=== PATIENT | female | born 1950 | race Caucasian/White ===

== ENCOUNTER 2025-08-21 12:42 | Emergency (ER) | payer MEDICARE, BC ==
[~2025-08-21] VITALS: Ht 167.6 cm; Wt 56.0 kg
[2025-08-21 12:46] VITALS: TEMP 98
--- NOTE | 2025-08-21 15:27 | Physician Documentation ---
Addendum CHIEF COMPLAINT/HPI: The patient is a 69-year-old female who was found wandering the streets and u nable to tell police where she lived or even her name. They brought her here. REVIEW OF SYSTEMS: Unable to obtain due to patient's language deficit PHYSICAL EXAMINATION: Vitals and nursing note reviewed. Constitutional: General: Patient is awake, alert, oriented x 4 in no acute distress and well appearing. Speech is clear and lucid. Appearance: Normal appearance. Patient is not ill-appearing, toxic-appearing or diaphoretic. HENT: Head: Normocephalic and atraumatic. Mouth: Mucous membranes are moist. Pharynx: Oropharynx is clear. Eyes: General: No scleral icterus. Extraocular Movements: Extraocular movements intact. Pupils: Pupils are equal, round, and reactive to light. Neck: Supple, no Kernig or Brudzinski sign. Cardiovascular: Rate and Rhythm: Normal rate and regular rhythm. Heart sounds: No murmur heard. Pulmonary: Effort: No respiratory distress. Breath sounds: No wheezing, rhonchi or rales. Abdominal: General: There is no distension. Palpations: There is no fluid wave, hepatomegaly or mass. Tenderness: There is no abdominal tenderness. There is no guarding. Musculoskeletal: General: No swelling or deformity. Skin: Coloration: Skin is not jaundiced. Findings: No erythema or rash. Neurological: Mental Status: Patient is alert. MEDICAL DECISION MAKING: The patient is arrived. He has already arranged a bed for this patient at [facility]. Our tele-stroke neurologist recommended no further workup. Departure Disposition: [facility] Impression: Primary Impression: Dementia Condition: Stable Additional Instructions: Please take Jose directly to [facility]. CYRUS GARBER MD Aug 21, 2025 15:27
[2025-08-21 15:32] LABS: MEAN PLATELET VOLUME 7.3 FL (7.4-10.4); RED CELL DISTRIBUTION WIDTH 13.6 % (11.5-14.5)
--- NOTE | 2025-08-21 15:35 | RADIOLOGY REPORT ---
CT CT STROKE ALERT, CT CTA NECK/HEAD INDICATION: CVA COMPARISON: None TECHNIQUE: CT of the head without intravenous contrast. CT angiogram of the head and neck was performed with IV contrast. 3D MIP images were created and reviewed. Coronal and sagittal reformatted images were obtained. RADIATION DOSE: CTDIvol: 88.74 mGy, DLP: 1469.49 mGy*cm FINDINGS: CT HEAD: There is no evidence of acute intracranial hemorrhage, extra-axial collection, mass effect, midline shift, herniation or hydrocephalus. The ventricles, sulci and cisterns are age appropriate. The coyle-white differentiation is intact. Generalized brain atrophy. Periventricular white matter hypoattenuation, nonspecific, likely related to chronic small-vessel ischemic disease. The visualized paranasal sinuses and mastoid air cells are clear. The surrounding soft tissues and osseous structures are unremarkable. CTA HEAD: The anterior and posterior circulations are patent without evidence of large vessel occlusion, high-grade stenosis, aneurysm, or vascular malformation. The major dural venous sinuses are patent. CTA NECK: Mild scattered plaque in the aortic arch. Conventional 3-vessel branching pattern of the aortic arch. Bilateral common carotid arteries, carotid bulbs, and cervical internal carotid arteries are patent without evidence of significant stenoses by NASCET criteria. Bilateral external carotid arteries are patent Bilateral extradural vertebral arteries are patent with note of a slightly more dominant right vertebral artery. There is no dissection or other acute vascular abnormality in the neck IMPRESSION: No acute intracranial abnormality Atrophy and chronic small-vessel ischemic changes No large vessel occlusion, dissection, high-grade stenosis, or other acute vascular abnormality in the head or neck Findings communicated to Dr. Potter at 3:30 PM on 08/21/2025
[2025-08-21 15:37] VITALS: BP 144/84; PULSE 73; RESP 16; O2SAT 94
[2025-08-21 15:43] LABS: CREATININE 0.60 MG/DL (0.40-0.90); TOTAL CARBON DIOXIDE 25.1 MMOL/L (24-32); eCRCL 77 ML/MIN; eGFR > 90 ML/MIN
[2025-08-21 15:49] LABS: APTT 26 SECONDS (22-32); INR 1.2 INR
--- NOTE | 2025-08-21 15:49 | [facility] CONSULT REPORT ---
[facility] Procedure Note [facility] Procedure Note Consult [facility] Note # Demographics Consult Type: Acute Stroke Level 2 (4.5-24 hrs) Patient Location: Emergency Room First Name: Claire Last Name: Sandee Date of : 1950 Age: 75 Gender: Female Facility: [facility] Time of Initial Page (): 08/21/2025 15:17 First Contact with Site (): 08/21/2025 15:17 # HPI Chief Complaint: - confusion History: 75-year-old female with a history of dementia diagnosed 4 years ago who was brought to the emergency department by police after being found unable to provide her name or address when questioned about her whereabouts. The patient has experienced progressive worsening of her dementia over the past 2-4 years since diagnosis. She stopped driving approximately 2 years ago due to her condition. She has developed increasing difficulty forming words, which has progressively worsened over the years. states that the patient is currently at her baseline compared to how she's been the past month or so. He states that he cannot care of her anymore at this point. Last Known Normal: - 10 AM # Scores Time of exam and NIHSS (): 08/21/2025 15:42 Level of Consciousness 1a: [0] = Alert; keenly responsive LOC Questions 1b: [2] = Answers neither correctly LOC Commands 1c: [2] = Performs neither correctly Best Gaze 2: [0] = Normal Visual 3: [0] = No visual loss Facial Palsy 4: [0] = Normal symmetrical movements Motor Arm Left 5a: [0] = No drift Motor Arm Right 5b: [0] = No drift Motor Leg Left 6a: [0] = No drift Motor Leg Right 6b: [0] = No drift Limb Ataxia 7: [0] = Absent Sensory 8: [0] = Normal Best Language 9: [2] = Severe aphasia Dysarthria 10: [0] = Normal Extinction and Inattention 11: [0] = No abnormality NIHSS Total: 6 # Data Time Head CT personally read by me ([place] ): 08/21/2025 15:[address]: - no bleed - per radiologist read Time CTA personally reviewed by me (): 08/21/2025 15:42 CTA Head: - no large vessel occlusion - per radiologist read # Assessment Impression: - Other - Progressive dementia; is hoping to have patient be placed in a facility as he cannot take care of her at this point. # Plan Thrombolytic/Intervention: NOT IV Thrombolysis or IA Intervention candidate Intraarterial Exclusion: - no large vessel occlusion (LVO) Thrombolytic/Intraarterial Exclusion: - IV thrombolytic and IA intervention considered but not recommended as this patient's symptoms are not clinically consistent with an assumed diagnosis of stroke Labs: - ua - CBC - comprehensive metabolic panel Therapy/Evaluation: - PT/OT evaluation Other: - If patient has any neurological deterioration please call me back immediately - I have discussed my recommendations with the referring provider Disposition: observation # Logistics Attestation of consult completion: The patient is located at: [facility]. Facility staff participated in the visit. I performed this telemedicine visit from my offsite office utilizing interactive 2 way audio and visual telecommunication technology at the request of the onsite emergency room provider. Total time spent in telemedicine encounter: I spent 15 minutes reviewing cli nical data and/or imaging, obtaining history, examining the patient, communicating with the onsite care team, and in preparation of this report. # Demographics First Name: Claire Last Name: Sandee Facility: [facility] Neuro Consult Order placed for: Yes TYRELL PICKARD MD Aug 21, 2025 15:49
--- NOTE | 2025-08-21 15:53 | RADIOLOGY REPORT ---
EXAM: DI CHEST,SINGLE VIEW HISTORY: Stroke Alert COMPARISON: None TECHNIQUE: Portable upright AP view of the chest was performed. FINDINGS: No pneumothorax, consolidative infiltrates, or pulmonary edema. There is mild relative elevation of the right hemidiaphragm. The heart is not enlarged. IMPRESSION: No acute intrathoracic process.
[2025-08-21 16:12] LABS: LEUKOCYTE ESTERASE ,URINE NEGATIVE (Neg); NITRITES, URINE NEGATIVE (Neg); OCCULT BLOOD,URINE NEGATIVE (Neg)
[2025-08-21 16:15] LABS: UA COLLECTION TYPE VOIDED
--- NOTE | 2025-08-21 16:19 | ELECTROCARDIOGRAPH REPORT ---
[facility] Test Date: 2025-08-21 Test Time: 16:01:10 Pat Name: HERNAN KATZ Department: [facility]- Patient ID: [facility]-[id number] Room: Gender: F Circuit Manager: : 1950 Requested By: CYRUS GARBER Order Number: [id number] Reading MD: Measurements Intervals Ong Rate: 84 P: 45 IL: 164 QRS: -62 QRSD: 86 T: 87 QT: 420 QTc: 497 Interpretive Statements Atrial-paced complexes Ventricular premature complex Inferior infarct, old Lateral leads are also involved Please click the below link to view image of tracing.
[2025-08-21 16:27] LABS: URINE AMPHETAMINE SCREEN NEGATIVE (Neg); URINE BARBITUATE SCREEN NEGATIVE (Neg); URINE BENZODIAZEPINES SCREEN NEGATIVE (Neg); URINE CANNABINOID SCREEN NEGATIVE (Neg); URINE COCAINE SCREEN NEGATIVE (Neg); URINE METHADONE SCREEN NEGATIVE (Neg); URINE OPIATE SCREEN NEGATIVE (Neg); URINE PHENCYCLIDINE SCREEN NEGATIVE (Neg)
[2025-08-21] MEDS: haloperidol lactate 5mg/ml inj IM ONE (16:34)
== END 2025-08-21 16:45 ==
LOC: ER 12:43 → EDBD 12:43 → ER 16:45
DX: F03.90 Unspecified dementia, unspecified severity, without behavioral disturbance, psychotic disturbance, mood disturbance, and anxiety (principal); I67.82 Cerebral ischemia; Z95.0 Presence of cardiac pacemaker; Z91.83 Wandering in diseases classified elsewhere; Z79.899 Other long term (current) drug therapy
CPT/HCPCS: 36415; 70450; 70496; 70498; 71045; 80048; 80305; 81003; 82948; 85025; 85610; 85730; 86885; 86900; 86901; 93005; 96372; 99285; J1630